=== PATIENT | female | born 1960 | race Two or more races ===

== ENCOUNTER 2022-05-15 13:20 | Emergency (ER) | payer OTHER ==
[~2022-05-15] VITALS: Ht 152.4 cm; Wt 81.6 kg
[2022-05-15] MEDS ORDERED: ALLEGRA ALLERG180 MG PO (16:55)
== END 2022-05-15 17:13 | disposition home or self-care (01) ==
LOC: ER 13:20
DX: T78.40XA Allergy, unspecified, initial encounter (principal)